=== PATIENT | female | born 1970 | race Caucasian/White ===

== ENCOUNTER 2018-08-29 08:29 | Day surgery (SDC) | payer OTHER ==
[2018-08-28 11:27] VITALS: BMI 24.0
[2018-08-29 10:00] VITALS: BP 129/95; TEMP 99
[2018-08-29 11:18] LABS: CSF Source CSF; Clarity Clear (Clear); RBC Count - Manual 0 /cumm (None Seen); Tube # 4; WBC/NonHematics Count - Manual 1 /cumm (0-5)
[2018-08-29 11:19] LABS: CSF, Glucose 52 mg/dl (40-70); CSF, Protein 36 mg/dL (15-40)
--- NOTE | 2018-08-29 11:30 | RAD ---
LUMBAR PUNCTURE WITH FLUOROSCOPY: HISTORY: Cerebellar lesion. COMPARISON: None. TECHNIQUE/FINDINGS: The patient was brought to the fluoroscopy suite. All questions were answered. Informed consent was obtained. A time out was performed. The patient's back was prepped and draped in the normal sterile fashion, and 3 mL of Lidocaine was in stilled into the superficial and deep soft tissues. The L3-L4 interspace was accessed using a 22 gauge spinal needle. Clear CSF was aspirated, a total o f 20 mL. The first 10 mL was divided into equal 2.5 mL portions within four vials. The last 10 mL w as capped in a syringe. The patient tolerated the procedure well without complications. IMPRESSION: Technically successful fluoroscopic guided lumbar puncture. POS: JAMES
[2018-08-30 02:17] LABS: Color Of CSF Supernatant COLORLESS (Colorless); Tube # 2; Unspun CSF Color COLORLESS (Colorless)
== END 2018-08-29 11:20 | disposition home or self-care (01) ==
LOC: RAD 08:29
PROVIDERS: ATTEND Neurological Surgery
PROC: 00JU3ZZ Inspection of Spinal Canal, Percutaneous Approach (ICD-10-PCS; principal; 2018-08-29)
DX: G93.9 Disorder of brain, unspecified (principal); E03.9 Hypothyroidism, unspecified; E55.9 Vitamin D deficiency, unspecified; Z86.73 Personal history of transient ischemic attack (TIA), and cerebral infarction without residual deficits; Z79.899 Other long term (current) drug therapy; Z88.8 Allergy status to other drugs, medicaments and biological substances
CPT/HCPCS: 62270; 82945; 83916; 84157; 89051

== ENCOUNTER → 2018-08-31 | Day surgery (SDC) | payer OTHER | LOC: SDC/OP 09:28 | PROVIDERS: ATTEND Anesthesiology | PROC: 3E0S3GC Introduction of Other Therapeutic Substance into Epidural Space, Percutaneous Approach (ICD-10-PCS; principal; 2018-08-31) | DX: R51 Headache (principal); Z79.899 Other long term (current) drug therapy; Z88.6 Allergy status to analgesic agent | CPT/HCPCS: 62272 ==

== ENCOUNTER 2019-09-14 07:45 | Outpatient (CLI) | payer OTHER ==
--- NOTE | 2019-09-27 13:09 | MMO ---
Bilateral MAMMO Bilat Screen [facility]. CLINICAL HISTORY: Patient is 49 years old and is seen for screening. The patient has the following family history of breast cancer: paternal grandmother, malignant (generic). The patient has no personal history of cancer. VIEWS: The views performed were: bilateral craniocaudal with tomosynthesis and bilateral mediolateral oblique with tomosynthesis. FILMS COMPARED: The present examination has been compared to prior imaging studies performed at [facility] on 04/07/2016, 05/12/2017 and 09/07/2018. This study has been interpreted with the assistance of computer-aided detection. MAMMOGRAM FINDINGS: The breasts are heterogeneously dense, which could obscure a lesion on mammography. There are no suspicious masses, suspicious calcifications, or new areas of architectural distortion. IMPRESSION: THERE IS NO MAMMOGRAPHIC EVIDENCE OF MALIGNANCY. A ROUTINE FOLLOW-UP MAMMOGRAM IN 1 YEAR IS RECOMMENDED. THE RESULTS OF THIS EXAM WERE SENT TO THE PATIENT. ACR BI-RADS Category 1 - Negative MAMMOGRAPHY NOTE: 1. A negative mammogram report should not delay a biopsy if a dominant of clinically suspicious mass is present. 2. Approximately 10% to 15% of breast cancers are not detected by mammography. 3. Adenosis and dense breasts may obscure an underlying neoplasm. Reported by: HENRRY JOYCE MD Electonically Signed: [id number]
== END 2019-09-14 07:46 | disposition home or self-care (01) ==
LOC: BICMAMMO 07:45
PROVIDERS: ATTEND Obstetrics & Gynecology
DX: Z12.31 Encounter for screening mammogram for malignant neoplasm of breast (principal); Z80.3 Family history of malignant neoplasm of breast
CPT/HCPCS: 77063; 77067